=== PATIENT | female | born 1995 | race Caucasian/White ===

== ENCOUNTER → 2024-06-17 08:41 | Outpatient (REF) | payer OTHER, SELFPAY | LOC: HWRAD 08:41 | PROVIDERS: ATTENDING PHYSICIAN Nurse Practitioner Family; FAMILY PHYSICIAN Family Medicine | DX: Z34.90 Encounter for supervision of normal pregnancy, unspecified, unspecified trimester (principal) | CPT/HCPCS: 76801 ==

== ENCOUNTER → 2024-07-07 14:44 | Outpatient (REF) | payer OTHER, SELFPAY | LOC: PNTC 14:44 | PROVIDERS: ATTENDING PHYSICIAN Student in an Organized Health Care Education/Training Program | DX: Z34.81 Encounter for supervision of other normal pregnancy, first trimester (principal) | CPT/HCPCS: 76801; 76813 ==

== ENCOUNTER → 2024-08-31 13:49 | Outpatient (REF) | payer OTHER, SELFPAY | LOC: PNTC 13:49 | PROVIDERS: ATTENDING PHYSICIAN Student in an Organized Health Care Education/Training Program | DX: Z87.59 Personal history of other complications of pregnancy, childbirth and the puerperium (principal) | CPT/HCPCS: 76811 ==

== ENCOUNTER → 2024-11-25 14:55 | Outpatient (REF) | payer OTHER, SELFPAY | LOC: PNTC 14:55 | PROVIDERS: ATTENDING PHYSICIAN Obstetrics & Gynecology | DX: Z34.00 Encounter for supervision of normal first pregnancy, unspecified trimester (principal) | CPT/HCPCS: 76816 ==

== ENCOUNTER 2024-11-26 08:50 | Outpatient (RCR) | payer OTHER, SELFPAY | END 2024-11-26 23:59 | disposition home or self-care (01) | LOC: RPT 08:50 | PROVIDERS: ATTENDING PHYSICIAN Obstetrics & Gynecology; FAMILY PHYSICIAN Family Medicine | DX: M53.3 Sacrococcygeal disorders, not elsewhere classified (principal); Z73.6 Limitation of activities due to disability | CPT/HCPCS: 97110; 97112; 97140; 97162; 97530 ==

== ENCOUNTER 2024-12-02 12:02 | Outpatient (RCR) | payer OTHER, SELFPAY | END 2024-12-02 23:59 | disposition home or self-care (01) | LOC: RPT 12:02 | PROVIDERS: ATTENDING PHYSICIAN Obstetrics & Gynecology; FAMILY PHYSICIAN Family Medicine | DX: M53.3 Sacrococcygeal disorders, not elsewhere classified (principal); Z73.6 Limitation of activities due to disability; Z34.92 Encounter for supervision of normal pregnancy, unspecified, second trimester | CPT/HCPCS: 97110; 97112; 97140 ==

== ENCOUNTER 2024-12-03 15:22 | Observation (INO) | payer OTHER, SELFPAY ==
[2024-12-03 15:29] VITALS: BP 152/89; BMI 28.1
[2024-12-03 15:56] LABS: Hematocrit 33.2 % (37.0-47.0); Hemoglobin 11.8 g/dL (12.0-16.0); Mean Corp Hgb Conc. 35.5 g/dL (33.0-37.0); Mean Corpuscular Volume 88.8 fL (81.0-99.0); Nucleated Red Blood Cells % 0 %; Platelet Count 168 10^3/uL (130-400); Red Cell Dist. Width 12.9 % (11.5-14.5)
[2024-12-03 16:10] LABS: ALT (SGPT) 11 U/L (0-35); AST (SGOT) 17 U/L (14-36); Albumin 3.7 g/dl (3.5-5.0); Alkaline Phosphatase 86 U/L (38-126); Blood Urea Nitrogen 6 mg/dl (7-17); Calcium 8.9 mg/dl (8.4-10.2); Carbon Dioxide 23 mmol/L (22-30); Chloride 108 mmol/L (98-107); Estimated Creatinine Clearance > 125 ml/min; Glucose 95 mg/dl (70-99); Potassium 3.9 mmol/L (3.5-5.1); Sodium 135 mmol/L (135-145); Total Protein 6.3 g/dl (6.3-8.2); eGFR > 60.00
== END 2024-12-03 16:57 | disposition home or self-care (01) ==
LOC: LDRP 15:22
PROVIDERS: ADMITTING PHYSICIAN Obstetrics & Gynecology; FAMILY PHYSICIAN Family Medicine
DX: O99.891 Other specified diseases and conditions complicating pregnancy (principal); R03.0 Elevated blood-pressure reading, without diagnosis of hypertension; Z3A.34 34 weeks gestation of pregnancy
CPT/HCPCS: 80053; 82570; 84156; 85025; G0378

== ENCOUNTER 2024-12-16 16:11 | Observation (INO) | payer OTHER, SELFPAY ==
[2024-12-16 16:40] VITALS: BP 151/97; BMI 28.7
[2024-12-16 16:48] LABS: Hematocrit 34.1 % (37.0-47.0); Hemoglobin 12.2 g/dL (12.0-16.0); Mean Corp Hgb Conc. 35.8 g/dL (33.0-37.0); Mean Corpuscular Volume 88.3 fL (81.0-99.0); Nucleated Red Blood Cells % 0 %; Platelet Count 154 10^3/uL (130-400); Red Cell Dist. Width 13.0 % (11.5-14.5)
[2024-12-16 16:51] LABS: Urine Character Clear (Clear)
[2024-12-16 17:02] LABS: Urine Squamous Cell >30 /LPF (Few)
[2024-12-16 17:03] LABS: Urine Red Blood Cell 0-2 /HPF (0-2)
[2024-12-16 17:09] LABS: ALT (SGPT) 11 U/L (0-35); AST (SGOT) 18 U/L (14-36); Albumin 3.8 g/dl (3.5-5.0); Alkaline Phosphatase 105 U/L (38-126); Blood Urea Nitrogen 8 mg/dl (7-17); Calcium 9.1 mg/dl (8.4-10.2); Carbon Dioxide 20 mmol/L (22-30); Chloride 106 mmol/L (98-107); Estimated Creatinine Clearance > 125 ml/min; Glucose 96 mg/dl (70-99); Potassium 4.3 mmol/L (3.5-5.1); Total Protein 6.4 g/dl (6.3-8.2); eGFR > 60.00
[2024-12-16 17:30] LABS: Sodium 132 mmol/L (135-145)
== END 2024-12-16 20:30 | disposition home or self-care (01) ==
LOC: LDRP 16:11
PROVIDERS: ADMITTING PHYSICIAN Obstetrics & Gynecology; FAMILY PHYSICIAN Obstetrics & Gynecology
DX: O14.03 Mild to moderate pre-eclampsia, third trimester (principal); Z3A.35 35 weeks gestation of pregnancy
CPT/HCPCS: 80053; 81003; 81015; 82570; 84156; 85025; 86850; 86900; 86901; G0378

== ENCOUNTER 2024-12-21 16:28 | Inpatient (IN) | payer OTHER, SELFPAY ==
[2024-12-21 16:35] VITALS: BP 155/94; BMI 28.7
[2024-12-21 17:06] LABS: Hematocrit 35.1 % (37.0-47.0); Hemoglobin 12.6 g/dL (12.0-16.0); Mean Corp Hgb Conc. 35.9 g/dL (33.0-37.0); Mean Corpuscular Volume 88.9 fL (81.0-99.0); Platelet Count 158 10^3/uL (130-400); Red Cell Dist. Width 13.1 % (11.5-14.5)
[2024-12-21 17:16] LABS: ALT (SGPT) 12 U/L (0-35); AST (SGOT) 22 U/L (14-36); Albumin 4.2 g/dl (3.5-5.0); Alkaline Phosphatase 128 U/L (38-126); Blood Urea Nitrogen 5 mg/dl (7-17); Calcium 9.1 mg/dl (8.4-10.2); Carbon Dioxide 21 mmol/L (22-30); Chloride 104 mmol/L (98-107); Estimated Creatinine Clearance > 125 ml/min; Glucose 80 mg/dl (70-99); Potassium 4.1 mmol/L (3.5-5.1); Sodium 131 mmol/L (135-145); Total Protein 6.9 g/dl (6.3-8.2); eGFR > 60.00
[2024-12-21] MEDS: BICITRA 30 ML PO (17:27)
[2024-12-21] MEDS: ANCEF 10 IV (17:27)
[2024-12-21] MEDS: TYLENOL 975 MG PO (17:27)
[2024-12-21] MEDS: CELESTONE SOLUSPAN 2 MG IM (17:40)
[2024-12-21] MEDS: TORADOL 15 MG IV (22:40)
[2024-12-21] MEDS: ROXICODONE 5 MG PO (23:18)
--- NOTE | 2024-12-22 02:25 | DOWNTIME ---
There was a [facility] Client Milling/Polishing Operator Downtime on 12/22/2024 from 0100 to 12/22/2024 at 0220. Downtime documentation of patient's care, including medication administrations, has been reconciled in the electronic record per guidelines. Refer to the
patient's paper chart under the miscellaneous tab to see printed paper medication records and downtime forms.
[2024-12-22] MEDS: TORADOL 15 MG IV ×3 (04:17→16:13)
[2024-12-22 05:04] LABS: Hematocrit 30.3 % (37.0-47.0); Hemoglobin 11.0 g/dL (12.0-16.0); Mean Corp Hgb Conc. 36.3 g/dL (33.0-37.0); Mean Corpuscular Volume 88.3 fL (81.0-99.0); Platelet Count 153 10^3/uL (130-400); Red Cell Dist. Width 12.8 % (11.5-14.5)
[2024-12-22] MEDS: ROXICODONE 10 MG PO ×2 (07:58→21:21)
[2024-12-22] MEDS: COLACE 100 MG PO ×2 (07:59→21:11)
[2024-12-22] MEDS: PRENATAL PLUS 1 TABLET PO (07:59)
[2024-12-22] MEDS: MYLICON 80 MG PO (07:59)
[2024-12-22 14:19] LABS: Syphilis/T. pallidum Ab Reflex Negative (Negative)
--- NOTE | 2024-12-22 15:00 | W.PN.ANS.POP ---
Anesthesia Post Operative
- Anesthesia Post Op Note
Change in Mental Status: No
Current Postoperative Nausea & Vomiting: No
Anesthesia Complications: No
General Anesthetic Recall: No
Unplanned Admission: No
[2024-12-23] MEDS: TYLENOL 650 MG PO ×3 (01:21→22:14)
[2024-12-23] MEDS: MOTRIN 600 MG PO ×3 (01:21→22:15)
[2024-12-23] MEDS: ROXICODONE 10 MG PO ×3 (05:01→17:09)
[2024-12-23] MEDS: COLACE 100 MG PO ×3 (08:10→22:14)
[2024-12-23] MEDS: PRENATAL PLUS 1 TABLET PO (08:10)
[2024-12-23] MEDS: ROXICODONE 5 MG PO (22:17)
[2024-12-24] MEDS: MOTRIN 600 MG PO ×3 (04:21→23:32)
[2024-12-24] MEDS: TYLENOL 650 MG PO ×2 (04:21→19:53)
[2024-12-24] MEDS: PRENATAL PLUS 1 TABLET PO (07:59)
[2024-12-24] MEDS: COLACE 100 MG PO ×2 (07:59→19:52)
[2024-12-24] MEDS: ROXICODONE 10 MG PO ×2 (07:59→15:12)
[2024-12-24] MEDS: PROCARDIA XL (EXTENDED RELEASE) 30 MG PO ×2 (08:24→19:53)
[2024-12-24] MEDS: ROXICODONE 5 MG PO (19:54)
[2024-12-25] MEDS: TYLENOL 650 MG PO ×3 (00:12→20:09)
[2024-12-25] MEDS: ROXICODONE 5 MG PO (00:13)
[2024-12-25] MEDS: PROCARDIA XL (EXTENDED RELEASE) 60 MG PO (08:04)
[2024-12-25] MEDS: PRENATAL PLUS 1 TABLET PO (08:04)
[2024-12-25] MEDS: COLACE 100 MG PO ×2 (08:05→20:09)
[2024-12-25] MEDS: MOTRIN 600 MG PO ×2 (08:07→20:09)
[2024-12-25] MEDS: ATIVAN 0.5 MG PO (10:30)
[2024-12-26] MEDS: MOTRIN 600 MG PO ×2 (02:14→08:24)
[2024-12-26] MEDS: TYLENOL 650 MG PO ×2 (02:14→08:23)
[2024-12-26] MEDS: TRANDATE 200 MG PO (08:23)
[2024-12-26] MEDS: COLACE 100 MG PO (08:23)
[2024-12-26] MEDS: PRENATAL PLUS 1 TABLET PO (08:23)
--- NOTE | 2024-12-26 12:55 | W.DS.TRANS ---
DC Summary - [employer]
-
Discharge Instructions:
Discharge Diagnosis/Procedures delivered 36.4 wks; preeclampsia
severe range BPs
Diet Regular
Activity No strenuous activity
Driving Restrictions No driving for 2 weeks
Bathing Restrictions OK to Shower
Instructions:
Stand-Alone Forms: LDRP Delivery
LDRP Hypertensive Disorders
Changes to Home Medications: No
Discharge Medications:
DC Medications w/original date entered in [employer]
Vitamin Tablet 1 1 each PO DAILY Supplement 07/24/21
magnesium 500 mg tablet 15 mg PO HS Supplement 12/16/24
acetaminophen 325 mg tablet 650 mg (2 x 325 mg) PO Q4HPRN PRN mild pain #0 tabs 12/24/24
calcium carbonate (Calcium Antacid) 400 mg (2 x 200 mg calcium (500 mg)) PO Q6HPRN PRN indigestion #0 tabs 12/24/24
ibuprofen 600 mg tablet 600 mg PO Q6HPRN PRN cramps #0 tabs 12/24/24
oxycodone 5 mg tablet 5 mg PO Q4HPRN PRN moderate pain #8 tabs 12/24/24
labetalol 200 mg tablet 200 mg PO BID #60 tabs 12/26/24
labetalol 200 mg tablet 400 mg (2 x 200 mg) PO BID #120 tabs 12/26/24
Home Medication Changes
Pending Results: Yes (placenta path report)
Total time spent discharging patient (in min): 20
== END 2024-12-26 14:37 | disposition home or self-care (01) | DRG 788 ==
LOC: LDRP 16:28
PROVIDERS: ADMITTING PHYSICIAN Obstetrics & Gynecology
PROC: 10D00Z1 Extraction of Products of Conception, Low, Open Approach (ICD-10-PCS; 2024-12-21)
DX: O14.14 Severe pre-eclampsia complicating childbirth (principal); Z3A.36 36 weeks gestation of pregnancy; Z37.0 Single live birth; O34.211 Maternal care for low transverse scar from previous cesarean delivery; F10.11 Alcohol abuse, in remission; F32.A Depression, unspecified; O99.344 Other mental disorders complicating childbirth; R00.2 Palpitations; F41.0 Panic disorder [episodic paroxysmal anxiety]; Z87.440 Personal history of urinary (tract) infections; Z86.16 Personal history of COVID-19
CPT/HCPCS: 59025; 74018; 76816; 80053; 82570; 84156; 85027; 86780; 86850; 86900; 86901; 87070; 88307

== ENCOUNTER 2025-03-25 06:45 | Outpatient (RCR) | payer BC, SELFPAY | END 2025-03-25 23:59 | disposition home or self-care (01) | LOC: RPT 06:45 | PROVIDERS: ATTENDING PHYSICIAN Obstetrics & Gynecology; FAMILY PHYSICIAN Family Medicine | DX: R10.20 Pelvic and perineal pain unspecified side (principal); Z73.6 Limitation of activities due to disability | CPT/HCPCS: 97112; 97162; 97530 ==